=== PATIENT | male | born 1950 | race Caucasian/White ===

== ENCOUNTER → 2021-09-02 | Outpatient (CLI) | payer OTHER | LOC: US 13:58 | DX: I65.23 Occlusion and stenosis of bilateral carotid arteries (principal); I77.9 Disorder of arteries and arterioles, unspecified | CPT/HCPCS: 93880 ==

== ENCOUNTER 2021-12-20 10:41 | Emergency (ER) | payer OTHER | END 2021-12-20 11:16 | disposition left against medical advice (07) | LOC: ER1 10:41 | DX: Z53.21 Procedure and treatment not carried out due to patient leaving prior to being seen by health care provider (principal) ==

== ENCOUNTER 2021-12-26 12:07 | Inpatient (IN) | payer OTHER ==
[~2021-12-26] VITALS: Ht 182.9 cm; Wt 63.2 kg
[2021-12-26 12:31] LABS: HEMOGLOBIN 15.2 gm/dl (14.0-17.5); RED BLOOD COUNT 4.85 M/UL (4.20-5.50); WHITE BLOOD COUNT 10.9 K/UL (4.5-11.0)
[2021-12-26 13:04] LABS: BUN/CREATININE RATIO 16 (0-10)
[2021-12-26] MEDS ORDERED: CARVEDILOL3.125 MG PO (18:00)
[2021-12-26] MEDS ORDERED: ATORVASTATIN CA40 MG PO (18:00)
[2021-12-26] MEDS ORDERED: CLOPIDOGREL75 MG PO (18:00)
[2021-12-26] MEDS ORDERED: TRAZODONE HCL100 MG PO (18:01)
[2021-12-27 02:19] LABS: WHITE BLOOD COUNT 8.6 K/UL (4.5-11.0)
[2021-12-27 02:21] LABS: HEMOGLOBIN 13.2 gm/dl (14.0-17.5); RED BLOOD COUNT 4.23 M/UL (4.20-5.50)
[2021-12-27 02:46] LABS: BUN/CREATININE RATIO 21 (0-10)
[2021-12-27] MEDS ORDERED: ONE DAILY COMP1 EACH PO (13:06)
[2021-12-27] MEDS ORDERED: EMERGEN-C 500500 MG PO (13:06)
[2021-12-27] MEDS ORDERED: LOW DOSE ASPIRI81 MG PO (13:07)
[2021-12-27] MEDS ORDERED: SERTRALINE HCL100 MG PO (13:07)
[2021-12-27 16:26] LABS: HEMOGLOBIN 13.5 gm/dl (14.0-17.5); RED BLOOD COUNT 4.44 M/UL (4.20-5.50)
[2021-12-28 03:41] LABS: HEMOGLOBIN 13.1 gm/dl (14.0-17.5); RED BLOOD COUNT 4.27 M/UL (4.20-5.50); WHITE BLOOD COUNT 9.7 K/UL (4.5-11.0)
[2021-12-29 03:10] LABS: HEMOGLOBIN 12.9 gm/dl (14.0-17.5); RED BLOOD COUNT 4.18 M/UL (4.20-5.50); WHITE BLOOD COUNT 8.1 K/UL (4.5-11.0)
[2021-12-30 03:48] LABS: HEMOGLOBIN 12.8 gm/dl (14.0-17.5); RED BLOOD COUNT 4.13 M/UL (4.20-5.50); WHITE BLOOD COUNT 6.9 K/UL (4.5-11.0)
[2021-12-31 03:02] LABS: HEMOGLOBIN 13.9 gm/dl (14.0-17.5); RED BLOOD COUNT 4.44 M/UL (4.20-5.50)
[2021-12-31 03:13] LABS: WHITE BLOOD COUNT 11.8 K/UL (4.5-11.0)
[2022-01-01 02:04] LABS: HEMOGLOBIN 13.2 gm/dl (14.0-17.5); RED BLOOD COUNT 4.38 M/UL (4.20-5.50); WHITE BLOOD COUNT 9.6 K/UL (4.5-11.0)
[2022-01-01 02:25] LABS: BUN/CREATININE RATIO 32 (0-10)
[2022-01-01] MEDS ORDERED: DECADRON6 MG PO (10:16)
[2022-01-01] MEDS ORDERED: ROXANOL SO10 MG/5 ML PO (12:03)
[2022-01-01] MEDS ORDERED: ATIVAN0.5 MG PO (12:03)
[2022-01-01] MEDS ORDERED: NICOTINE PATCH1 EAC1 TD (12:03)
--- NOTE | 2022-01-01 13:50 | NUR ---
REPORT CALLED TO HOSPICE NURSE ELLEN HARP. EMS CALLED FOR TRANSPORT.
== END 2022-01-01 16:56 | disposition home or self-care (01) | DRG 177 ==
LOC: ER1 12:07 → PROG CARE 15:33 → CDU 15:33 → PROG CARE 18:32
PROVIDERS: Family Medicine; Internal Medicine; Physician Assistant Medical; ADMIT Internal Medicine
PROC: 3E0333Z Introduction of Anti-inflammatory into Peripheral Vein, Percutaneous Approach (ICD-10-PCS; 2021-12-26)
PROC: 8E0ZXY6 Isolation (ICD-10-PCS; 2021-12-26)
PROC: 5A0945A Assistance with Respiratory Ventilation, 24-96 Consecutive Hours, High Flow/Velocity Cannula (ICD-10-PCS; 2021-12-26)
PROC: B24BZZZ Ultrasonography of Heart with Aorta (ICD-10-PCS; principal; 2021-12-28)
PROC: 5A09357 Assistance with Respiratory Ventilation, Less than 24 Consecutive Hours, Continuous Positive Airway Pressure (ICD-10-PCS; 2021-12-28)
PROC: 5A0935A Assistance with Respiratory Ventilation, Less than 24 Consecutive Hours, High Flow/Velocity Cannula (ICD-10-PCS; 2021-12-28)
PROC: 5A09357 Assistance with Respiratory Ventilation, Less than 24 Consecutive Hours, Continuous Positive Airway Pressure (ICD-10-PCS; 2021-12-29)
PROC: 5A0945A Assistance with Respiratory Ventilation, 24-96 Consecutive Hours, High Flow/Velocity Cannula (ICD-10-PCS; 2021-12-29)
DX: U07.1 COVID-19 (principal); J12.82 Pneumonia due to coronavirus disease 2019; J96.21 Acute and chronic respiratory failure with hypoxia; J15.9 Unspecified bacterial pneumonia; C34.91 Malignant neoplasm of unspecified part of right bronchus or lung; J44.0 Chronic obstructive pulmonary disease with (acute) lower respiratory infection; J84.112 Idiopathic pulmonary fibrosis; I08.3 Combined rheumatic disorders of mitral, aortic and tricuspid valves; I25.10 Atherosclerotic heart disease of native coronary artery without angina pectoris; I73.9 Peripheral vascular disease, unspecified; I65.29 Occlusion and stenosis of unspecified carotid artery; R74.01 Elevation of levels of liver transaminase levels; I10 Essential (primary) hypertension; E78.5 Hyperlipidemia, unspecified; F17.210 Nicotine dependence, cigarettes, uncomplicated; Z71.6 Tobacco abuse counseling; Z51.5 Encounter for palliative care; Z95.1 Presence of aortocoronary bypass graft; Z80.9 Family history of malignant neoplasm, unspecified
CPT/HCPCS: ECHO; 36415; 36600; 71045; 80048; 80053; 82550; 82553; 82803; 82962; 83036; 83605; 83735; 83880; 84484; 85025; 85027; 85379; 85610; 85730; 86140; 87040; 87070; 87205; 93005; 93306; 93970; 94640; 94660; 94664; 94760; 94762; 96374; 96375; 99285; J0456; J0696; J1100; J1644; J1650; J2185; J2930; J7030; J7050; Q9967; U0002